=== PATIENT | female | born 1985 | race African-American/Black ===

== ENCOUNTER 2024-03-17 10:45 | Inpatient (IN) | payer BC, OTHER ==
[~2024-03-17] VITALS: Ht 149.9 cm; Wt 85.0 kg
[2024-03-17 12:07] LABS: Basophils # (auto) 0 10 ^3/uL (0-0.2); Basophils % (auto) 0.6 % (0.0-2.0); Eosinophils # (auto) 0.1 10 ^3/uL (0-0.8); Eosinophils % (auto) 2.4 % (0.0-7.0); Hematocrit 41.8 % (36.0-46.0); Hemoglobin 13.4 g/dL (12.2-16.2); Lymphocytes # (auto) 1.3 10 ^3/uL (0.4-5.4); Lymphocytes % (auto) 42.3 % (10.0-50.0); Mean Corpuscular Hemoglobin 26.2 pg (28.0-32.0); Mean Corpuscular Hgb Conc. 31.9 g/dL (32.0-36.0); Mean Corpuscular Volume 82.1 fL (80.0-100.0); Monocytes # (auto) 0.1 10 ^3/uL (0-1.3); Monocytes % (auto) 4.5 % (0.0-12.0); Neutrophils # (auto) 1.5 10 ^3/uL (1.6-8.6); Neutrophils % (auto) 50.2 % (37.0-80.0); Nucleated Red Blood Cells % 0.3 %; Platelet Count (auto) 136 10^3/uL (140-450); Red Blood Cells 5.09 10^6/uL (4.0-5.20)
[2024-03-17 12:09] LABS: Chloride 109 mmol/L (98-107); Potassium 4.6 mmol/L (3.5-5.1); Red Cell Distribution Width 29.5 % (11.8-14.3); Sodium 138 mmol/L (136-145)
[2024-03-17 12:10] LABS: Anion Gap 6 (5-15); Calcium 9.9 mg/dL (8.7-10.4); Carbon Dioxide 23 mmol/L (20-30)
[2024-03-17 12:15] LABS: BUN/Creatinine Ratio 8.5 (10.0-20.0); Blood Urea Nitrogen 7 mg/dL (9-23); Glucose 100 mg/dL (74-106)
[2024-03-17 13:26] LABS: Urine Bacteria FEW /hpf (None Seen); Urine Blood Negative /uL (Negative); Urine Clarity Clear (Clear); Urine Color Light-Yellow (Yellow); Urine Hyaline Cast FEW /lpf (0 - 2); Urine Mucus FEW (None Seen); Urine Protein, UAD Negative (Negative); Urine Specific Gravity 1.011 (1.001-1.035); Urine Urobilinogen Normal (Negative); Urine WBC 8 /hpf (0 - 5)
[2024-03-17 13:34] LABS: Platelet Estimate Decreased
[2024-03-17 13:35] LABS: Anisocytosis Marked; Ovalocytes MODERATE
[2024-03-17] MEDS ORDERED: ACETAMINOPHEN 325 MG TAB PO PRN (15:15)
[2024-03-17] MEDS ORDERED: DOCUSATE SOD 100 MG CAP PO PRN (15:15)
[2024-03-17] MEDS ORDERED: ONDANSETRON HCL 4 MG/2 ML VIAL IV PRN (15:15)
[2024-03-17] MEDS ORDERED: NITROGLYCERIN 0.4 MG SL TAB SL PRN (16:00)
[2024-03-17] MEDS ORDERED: MORPHINE SULFATE INJ 2 MG/ml SYRG IV PRN (16:00)
[2024-03-17] MEDS: cefTRIAXone 1GM/50ML D5W 50 ML IV ONE (19:50)
[2024-03-17] MEDS: SODIUM CHLOR 0.9% PF (SALINE LOCK) 10ML VIAL/SYR IV SCH (22:00)
[2024-03-17 22:37] VITALS: BP 116/52; PULSE 87; RESP 18; TEMP 97.7; O2SAT 95
[2024-03-17] MEDS ORDERED: METO25TA93 PO (23:04)
[2024-03-17] MEDS ORDERED: AML5T PO (23:04)
[2024-03-17] MEDS ORDERED: FLUT500M2 INH (23:04)
[2024-03-17] MEDS ORDERED: ALBUAER3 IN (23:04)
[2024-03-17] MEDS ORDERED: OMEP-448 PO (23:04)
[2024-03-17] MEDS ORDERED: FER325T PO (23:04)
[2024-03-17] MEDS: MECLIZINE HCL 25 MG TAB PO PRN (23:52)
[2024-03-18] VITALS (10 sets, daily range): BP systolic 111–124; BP diastolic 73–90; PULSE 49–94; RESP 16–20; TEMP 97.6–98.3; O2SAT 95–99
[2024-03-18] MEDS: LORazepam 0.5 MG TAB PO ONE (07:55)
[2024-03-18] MEDS: cefTRIAXone 1GM/50ML D5W 50 ML IV SCH (08:46)
[2024-03-18 10:06] LABS: Basophils # (auto) 0 10 ^3/uL (0-0.2); Eosinophils # (auto) 0.2 10 ^3/uL (0-0.8); Hemoglobin 12.6 g/dL (12.2-16.2); Lymphocytes # (auto) 1.5 10 ^3/uL (0.4-5.4); Monocytes # (auto) 0.3 10 ^3/uL (0-1.3); Monocytes % (auto) 5.7 % (0.0-12.0); White Blood Cell 4.9 10^3/uL (4.4-10.8)
[2024-03-18 10:10] LABS: Basophils % (auto) 0.7 % (0.0-2.0); Hematocrit 37.7 % (36.0-46.0); Lymphocytes % (auto) 29.5 % (10.0-50.0); Mean Corpuscular Hemoglobin 26.5 pg (28.0-32.0); Mean Corpuscular Hgb Conc. 33.4 g/dL (32.0-36.0); Mean Corpuscular Volume 79.2 fL (80.0-100.0); Neutrophils % (auto) 60.1 % (37.0-80.0); Nucleated Red Blood Cells % 0.2 %; Platelet Count (auto) 382 10^3/uL (140-450); Red Blood Cells 4.76 10^6/uL (4.0-5.20); Red Cell Distribution Width 29.2 % (11.8-14.3)
[2024-03-18 10:13] LABS: Alanine Aminotransferase 16 U/L (7-40); Albumin 4.1 g/dL (3.2-4.8); Alkaline Phosphatase 80 U/L (46-116); Anion Gap 6 (5-15); Aspartate Aminotransferase < 8 U/L (13-40); BUN/Creatinine Ratio 7.4 (10.0-20.0); Bilirubin, Total 0.5 mg/dL (0.2-1.0); Blood Urea Nitrogen 7 mg/dL (9-23); Calcium 9.7 mg/dL (8.7-10.4); Carbon Dioxide 25 mmol/L (20-30); Chloride 106 mmol/L (98-107); Glucose 146 mg/dL (74-106); Potassium 3.6 mmol/L (3.5-5.1); Sodium 137 mmol/L (136-145); Total Protein 6.9 g/dL (5.7-8.2)
[2024-03-18 10:45] LABS: Platelet Estimate Adequate
[2024-03-18] MEDS: hydrOXYzine HCL 10 MG TAB PO PRN (18:48)
[2024-03-18] MEDS: HYDROcodone-ACET 5/325MG TAB PO PRN (18:49)
[2024-03-18] MEDS ORDERED: ALBUTEROL SULF 2.5 MG/0.5ML(0.5%) NEB SOLN NEB PRN (20:45)
[2024-03-18] MEDS ORDERED: clonazePAM 0.5 MG TAB PO PRN (20:45)
[2024-03-18] MEDS: FAMOTIDINE 20 MG TAB PO SCH (21:36)
[2024-03-18] MEDS: CITALOPRAM HYDROBR 20 MG TAB PO ONE (21:36)
[2024-03-19 05:00] VITALS: BP_SYST 133; BP_SYST 134; BP_DIAS 86; BP_DIAS 90; PULSE 54; PULSE 63; RESP 18; O2SAT 99
[2024-03-19] MEDS: LORazepam 0.5 MG TAB PO ONE (05:51)
[2024-03-19] MEDS ORDERED: PANTOPRAZOLE 40 MG TAB PO SCH (06:00)
[2024-03-19 07:01] LABS: Basophils # (auto) 0 10 ^3/uL (0-0.2); Eosinophils # (auto) 0.2 10 ^3/uL (0-0.8); Hemoglobin 13.4 g/dL (12.2-16.2); Lymphocytes # (auto) 1.6 10 ^3/uL (0.4-5.4); Monocytes # (auto) 0.2 10 ^3/uL (0-1.3)
[2024-03-19 07:04] LABS: Basophils % (auto) 0.8 % (0.0-2.0); Eosinophils % (auto) 3.8 % (0.0-7.0); Hematocrit 40.1 % (36.0-46.0); Lymphocytes % (auto) 39.9 % (10.0-50.0); Mean Corpuscular Hemoglobin 26.5 pg (28.0-32.0); Mean Corpuscular Hgb Conc. 33.4 g/dL (32.0-36.0); Mean Corpuscular Volume 79.4 fL (80.0-100.0); Neutrophils % (auto) 49.5 % (37.0-80.0); Nucleated Red Blood Cells % 0.2 %; Platelet Count (auto) 422 10^3/uL (140-450); Red Blood Cells 5.04 10^6/uL (4.0-5.20)
[2024-03-19 07:05] LABS: Chloride 107 mmol/L (98-107); Potassium 3.8 mmol/L (3.5-5.1); Sodium 137 mmol/L (136-145)
[2024-03-19 07:06] LABS: Anion Gap 6 (5-15); Calcium 9.7 mg/dL (8.7-10.4); Carbon Dioxide 24 mmol/L (20-30)
[2024-03-19 07:09] LABS: Red Cell Distribution Width 29.4 % (11.8-14.3)
[2024-03-19 07:11] LABS: BUN/Creatinine Ratio 9.6 (10.0-20.0); Blood Urea Nitrogen 9 mg/dL (9-23); Glucose 101 mg/dL (74-106); Triglycerides 203 mg/dL (< 150)
[2024-03-19 07:12] LABS: LDL Cholesterol 113 mg/dL (< 100)
[2024-03-19 07:13] LABS: Cholesterol 196 mg/dL (< 200); HDL Cholesterol 49 mg/dL (40-59)
[2024-03-19 08:00] VITALS: PULSE 60; RESP 17; O2SAT 99
[2024-03-19 09:00] VITALS: BP 115/77; PULSE 58; RESP 18; TEMP 97.8; O2SAT 98
[2024-03-19] MEDS: cefTRIAXone 1GM/50ML D5W 50 ML IV SCH (10:00)
[2024-03-19] MEDS ORDERED: SERTRALINE HCL 50 MG TAB PO SCH (10:00)
[2024-03-19] MEDS: CITALOPRAM HYDROBR 20 MG TAB PO SCH (10:01)
[2024-03-19] MEDS: FERROUS SULFATE 325mg EC TAB PO SCH (10:01)
[2024-03-19] MEDS: CEPHALEXIN 250 MG CAP PO SCH (10:02)
[2024-03-19 10:16] VITALS: O2SAT 98
[2024-03-19 13:00] VITALS: BP 126/89; PULSE 69; RESP 16; TEMP 97.7; O2SAT 96
[2024-03-19 13:37] VITALS: BP 115/77; PULSE 60; RESP 17; TEMP 36.6; O2SAT 99
[2024-03-20 16:06] LABS: Anti-Nuclear Antibody Direct Negative (Negative)
== END 2024-03-19 15:07 | disposition home or self-care (01) | DRG 55 ==
LOC: ER 10:45 → TELE 15:54 → TELE-WESTW 21:50 → WEST WING 03-18 22:56
PROVIDERS: ADMIT Internal Medicine; ATTEND Internal Medicine
DX: D33.2 Benign neoplasm of brain, unspecified (principal); N39.0 Urinary tract infection, site not specified; I10 Essential (primary) hypertension; H93.13 Tinnitus, bilateral; D50.9 Iron deficiency anemia, unspecified; F41.9 Anxiety disorder, unspecified; J45.909 Unspecified asthma, uncomplicated; K21.9 Gastro-esophageal reflux disease without esophagitis; F43.20 Adjustment disorder, unspecified; D69.6 Thrombocytopenia, unspecified; E66.9 Obesity, unspecified; Z79.899 Other long term (current) drug therapy; Z82.49 Family history of ischemic heart disease and other diseases of the circulatory system; Z68.37 Body mass index [BMI] 37.0-37.9, adult
CPT/HCPCS: 36415; 70450; 71045; 80048; 80053; 80061; 81001; 81025; 83036; 83540; 84146; 84443; 84484; 85025; 86038; 87086; 93306; 96365; G0378

== ENCOUNTER 2024-06-11 01:26 | Emergency (ER) | payer BC ==
[~2024-06-11] VITALS: Ht 149.9 cm; Wt 85.1 kg
[~2024-06-11 01:26] MED LIST: ALBUAER3 IN; AML5T PO; FER325T PO; FLUT500M2 INH; METO25TA93 PO; OMEP-448 PO
[2024-06-11 03:17] LABS: Urine Bacteria None Seen /hpf (None Seen)
--- NOTE | 2024-06-11 03:35 | ED.PDOC ---
HPI Comments A 38 year old female presents to the ED with a chief complaint of palpitations onset 1 week. Patient went to bed yesterday around 22:00 and shortly after began experiencing palpations with shortness of breath. Upon ED arrival, patient states palpations and shortness of breath has resolved. She has a Holter monitor in place, has seen Alcoholic Counselor and Psychiatrist recently. She denies any chest pain, dizziness, blurry vision, nausea, vomiting, diarrhea. No other symptoms or modifying factors present at this time. Chief Complaint: Palpitations Time Seen by MD: 03:12 Primary Care Provider: UNKNOWN Reviewed Notes: Medications, Allergies Allergies: Coded Allergies: NO KNOWN ALLERGIES (Unverified , 03/17/24) Home Meds Reported Medications Metoprolol Succinate (Metoprolol Succinate Er) 25 Mg Tab, 1 TAB PO DAILY, #30 TAB 5 Refills 03/17/24 Albuterol Sulfate (VENTOLIN MDI) 90 Mcg Ih, 90 MCG IN, INH 03/17/24 Ferrous Sulfate (FERROUS SULFATE) 325 Mg Tb, 1 TAB PO BID, #60 TAB 3 Refills 03/17/24 Amlodipine Besylate (NORVASC TABLET) 5 Mg Tb, 1 TAB PO DAILY, #30 TAB 5 Refills 03/17/24 Omeprazole (Omeprazole Dr) 40 Mg Cap, 40 MG PO BID, CAP 03/17/24 Fluticasone-Salmeterol (Advair Diskus 500/50) 1 Puff Ih, 1 PUFF INH BID, #1 INHALER 5 Refills 03/17/24 Information Source: Patient Mode of Arrival: Ambulatory Severity: Moderate Timing: Weeks Duration: Since onset Prehospital treatment: None Cardiac Risk Factors: None PE Risk Factors: None Associated Signs and Symptoms: SOB, Palpitations Past Medical History PAST MEDICAL HISTORY: Asthma Surgical History: Denies all surgeries [employer] History: Denies all [employer] Hx Family History Family History: Reviewed,noncontributory to illness Social History Smoker: Non-Smoker Alcohol: Denies ETOH Use Drugs: Denies Drug Use Lives In: Home Constitutional: denies: chills, diaphoresis, fatigue, fever, malaise, sweats, weakness, others EENTM: denies: blurred vision, double vision, ear bleeding, ear discharge, ear drainage, ear pain, ear ringing, eye pain, eye redness, hearing loss, mouth pain, mouth swelling, nasal discharge, nose bleeding, nose congestion, nose pain, photophobia, tearing, throat pain, throat swelling, voice changes, others Respiratory: reports: shortness of breath; denies: cough, hemoptysis, orthopnea, SOB at rest, SOB with excertion, stridor, wheezing, others Cardiovascular: reports: palpitations; denies: chest pain, dizzy spells, diaphoresis, Dyspnea on exertion, edema, irregular heart beat, left arm pain, lightheadedness, PND, syncope, others Gastrointestinal: denies: abdomen distended, abdominal pain, blood streaked bowels, constipated, diarrhea, dysphagia, difficulty swallowing, hematemesis, melena, nausea, poor appetite, poor fluid intake, rectal bleeding, rectal pain, vomiting, others Genitourinary: denies: abnormal vagina bleeding, burning, dyspareunia, dysuria, flank pain, frequency, hematuria, incontinence, pain, , vagina discharge, urgency, others Neurological: reports: headache; denies: dizziness, fainting, left sided numbness, left sided weakness, numbness, paresthesia, pre-existing deficit, right sided numbness, right sided weakness, seizure, speech problems, tingling, tremors, weakness, others Musculoskeletal: denies: back pain, gout, joint pain, joint swelling, muscle pain, muscle stiffness, neck pain, others Integumetry: denies: bruises, change in color, change in hair/nails, dryness, laceration, lesions, lumps, rash, wounds, others Allergic/Immunocompromised: denies: Difficulty Healing, Frequent Infections, Hives, Itching, others Hematologic/Lymphatic: denies: anemia, blood clots, easy bleeding, easy b ruising, swollen glands, others Endocrine: denies: excessive hunger, excessive sweating, excessive thirst, excessive urination, flushing, intolerance to cold, intolerance to heat, unexplained weight gain, unexplained weight loss, others Psychiatric: reports: anxiety; denies: bipolar disorder, depression, hopeless, panic disorder, schizophrenia, sleepless, suicidal, others All Other Systems: Reviewed and Negative Physical Exam General Appearance: Mild Distress, Normal HEENT: Normal ENT Inspection, Pharynx Normal, TMs Normal Neck: Full Range of Motion, Non-Tender, Normal, Normal Inspection Respiratory: Chest Non-Tender, Lungs Clear, No Accessory Muscle Use, No Respiratory Distress, Normal Breath Sounds Cardiovascular: No Edema, No JVD, No Murmur, No Gallop, Normal Peripheral Pulses, Regular Rate/Rhythm Breast Exam: Deferred Gastrointestinal: No Organomegaly, Non Tender, No Pulsatile Mass, Normal Bowel Sounds, Soft Genitalia: Deferred Pelvic: Deferred Rectal: Deferred Extremities: No calf tenderness, Normal capillary refill, Normal inspection, Normal range of motion, Non-tender, No pedal edema Musculoskeletal : Apperance: Normal Neurologic: Alert, honeycomb blanket maker II-XII nml as Tested, No Motor Deficits, Normal Affect, Normal Mood, No Sensory Deficits Cerebellar Function: Normal Reflexes: Normal Skin: Dry, Normal Color, Warm Lymphatic: No Adenopathy EKG EKG #1: [place]: Normal Cardiac Rhythm: NSR (78 bpm) Hypertrophy: RVH EKG #2: [place]: Normal Cardiac Rhythm: NSR (72 bpm) Hypertrophy: RVH Was a procedure done? Was a procedure done?: No CP Differential Dx Differential Diagnosis: A-fib, A-Flutter, Anxiety / Panic Attack, Hyperthyroidism, MA, Other (Panic attacks) X-Ray, Labs, Meds, VS Vital Signs Date Time Temp Pulse Resp B/P (MAP) Pulse Ox O2 Delivery O2 Flow Rate FiO2 06/11/24 02:39 72 06/11/24 01:36 78 06/11/24 01:36 97.5 88 16 147/96 (113) 98 Lab Test 06/11/24 02:34 06/11/24 01:43 06/11/24 01:37 Range/Units Troponin I High Sensitivity < 3 L < 3 L </=34 ng/L Urine Color Pending Urine Clarity Pending Urine pH Pending Urine Specific Datto Pending Urine Protein Pending Urine Ketones Pending Urine Blood Pending Urine Nitrite Pending Urine Bilirubin Pending Urine Urobilinogen Pending Urine Leukocyte Esterase Pending Urine RBC Pending Urine WBC Pending Urine Squamous Epithelial Cells Pending Urine Bacteria Pending Urine Glucose Pending First troponin is three. Second troponin is three. EKG reveals RVH but no signs of ischemia. The patient is seeing a endocrinologists a deployment specialist in [facility], she is receiving Holter monitor which she is going to mail in today from [facility]. She is given a complete workup. She is also seeing a psychiatrist. Who placed her on Lexapro but does not think his anxiety. She is encouraged to continue her current workup and follow up with all the specialists. She was given Ativan prior to discharge. Time of 1ST Reevaluation: 03:42 Reevaluation 1ST: Unchanged Patient Education/Counseling: Diagnosis, Treatment, Prognosis Family Education/Counseling: No Family Present Departure 1 Departure Time of Disposition: 03:39 Impression: Primary Impression: Anxiety Additional Impression: Palpitation Disposition: 01 HOME / SELF CARE / HOMELESS Condition: Fair Additional Instructions: Reassessed patient, vital signs stable. Denies any new symptoms. Patient is able to tolerate PO and ambulate/be mobile at their baseline without concern. Risks and benefits of all medications given or prescribed, if any, discussed. All lab work, imaging and diagnostic studies were reviewed by me. The patient was counseled extensively on my clinical impression, diagnosis, expected course of the disease, and plan, including their follow-up care. Will discharge patient. Patient instructed to follow up with Primary Care Physician within 24-48 hours. Strict return precautions given for further exacerbation of symptoms or for new symptoms. The patient was given the opportunity to ask questions and all questions were answered by myself and the nursing/tech staff. Patient is in agreement with the care plan. The patient verbally expressed understanding of the discharge instructions, including the reasons to return to the Emergency Department. Follow up with all your specialist including Cardiology Psychiatry and [facility] and medical lab scientist. Discharged With: Self Critical Care Note Critical Care Time?: No Stability Stability form required: No Heart Score Heart Score: Heart Score Response (Comments) Value History N/A 0 EKG Normal 0 Age <45 0 Risk Factors No known risk factors 0 Troponin Normal limit 0 Total 0 I personally scribed for MARE ALVARADO MD ([email or web address]) on 06/11/24 at 03:35. Electronically submitted by Devorah Rodriguez ([email or web address]). MARE ALVARADO MD Jun 11, 2024 03:35
[2024-06-11 04:03] VITALS: BP 147/96; PULSE 72; RESP 16; O2SAT 97
[2024-06-11 04:07] LABS: Urine Blood Negative /uL (Negative); Urine Clarity Clear (Clear); Urine Color Yellow (Yellow); Urine Mucus FEW (None Seen); Urine Protein, UAD TRACE (Negative); Urine Specific Gravity 1.031 (1.001-1.035); Urine Squamous Epithelial Cell FEW /hpf (<5); Urine Urobilinogen Normal (Negative); Urine WBC 27 /hpf (0 - 5)
--- NOTE | 2024-06-12 06:26 | ECG ---
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
--- NOTE | 2024-06-12 10:16 | ECG ---
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
== END 2024-06-11 04:08 | disposition home or self-care (01) ==
LOC: ER 01:26
DX: F41.9 Anxiety disorder, unspecified (principal); R00.2 Palpitations; J45.909 Unspecified asthma, uncomplicated; Z79.51 Long term (current) use of inhaled steroids; Z79.899 Other long term (current) drug therapy
CPT/HCPCS: 36415; 81001; 84484; 93005

== ENCOUNTER 2024-08-22 18:33 | Emergency (ER) | payer BC ==
[~2024-08-22] VITALS: Ht 149.9 cm; Wt 77.9 kg
--- NOTE | 2024-08-22 19:37 | ED.PDOC ---
HPI (NEURO) HPI Comments 39y F who presents to the ED for chief complaint of headache. Pt states she has been having headache, palpitations, dizziness, chills, malaise and body aches after she has been eating food. Pt states these symptoms have been going on for the past 1 week and pt states due to her symptoms, she has not eaten much over the past 4 days and states she has only eggs during this time period. Pt states she has been getting progressively worse and came to the ED for further evaluation. Pt otherwise denies any other symptoms at this time. Chief Complaint: Headache Time Seen by MD: 19:35 Primary Care Provider: SUSHIL Alberto Notes: Nurses Notes Information Source: Patient Mode of Arrival: Ambulatory Brought in by: self Past Medical History PAST MEDICAL HISTORY: Asthma Surgical History: Denies all surgeries [employer] AD[employer]ATE History: Denies all [employer] Hx Family History Family History: Reviewed,noncontributory to illness Social History Smoker: Non-Smoker Alcohol: Denies ETOH Use Drugs: Denies Drug Use Lives In: Home Constitutional: reports: weakness; denies: chills, diaphoresis, fatigue, fever, malaise, sweats, others EENTM: denies: blurred vision, double vision, ear bleeding, ear discharge, ear drainage, ear pain, ear ringing, eye pain, eye redness, hearing loss, mouth pain, mouth swelling, nasal discharge, nose bleeding, nose congestion, nose pain, photophobia, tearing, throat pain, throat swelling, voice changes, others Respiratory: denies: cough, hemoptysis, orthopnea, SOB at rest, shortness of breath, SOB with excertion, stridor, wheezing, others Cardiovascular: denies: chest pain, dizzy spells, diaphoresis, Dyspnea on exertion, edema, irregular heart beat, left arm pain, lightheadedness, palpitations, PND, syncope, others Gastrointestinal: reports: abdominal pain, vomiting; denies: abdomen distended, blood streaked bowels, constipated, diarrhea, dysphagia, difficulty swallowing, hematemesis, melena, nausea, poor appetite, poor fluid intake, rectal bleeding, rectal pain, others Genitourinary: denies: abnormal vagina bleeding, burning, dyspareunia, dysuria, flank pain, frequency, hematuria, incontinence, pain, , vagina discharge, urgency, others Neurological: reports: headache; denies: dizziness, fainting, left sided numbness, left sided weakness, numbness, paresthesia, pre-existing deficit, right sided numbness, right sided weakness, seizure, speech problems, tingling, tremors, weakness, others Musculoskeletal: denies: back pain, gout, joint pain, joint swelling, muscle pain, muscle stiffness, neck pain, others Integumetry: denies: bruises, change in color, change in hair/nails, dryness, laceration, lesions, lumps, rash, wounds, others Allergic/Immunocompromised: denies: Difficulty Healing, Frequent Infections, Hives, Itching, others Hematologic/Lymphatic: denies: anemia, blood clots, easy bleeding, easy bruising, swollen glands, others Endocrine: denies: excessive hunger, excessive sweating, excessive thirst, excessive urination, flushing, intolerance to cold, intolerance to heat, unexplained weight gain, unexplained weight loss, others Psychiatric: denies: anxiety, bipolar disorder, depression, hopeless, panic disorder, schizophrenia, sleepless, suicidal, others All Other Systems: Reviewed and Negative Physical Exam General Appearance: Mild Distress, Normal HEENT: Normal ENT Inspection, Pharynx Normal, TMs Normal Neck: Full Range of Motion, Non-Tender, Normal, Normal Inspection Respiratory: Chest Non-Tender, Lungs Clear, No Accessory Muscle Use, No Respiratory Distress, Normal Breath Sounds Cardiovascular: No Edema, No JVD, No Murmur, No Gallop, Normal Peripheral Pulses, Regular Rate/Rhythm Breast Exam: Deferred Gastrointestinal: No Organomegaly, Non Tender, No Pulsatile Mass, Normal Bowel Sounds, Soft Genitalia: Deferred Pelvic: Deferred Rectal: Deferred Extremities: No calf tenderness, Normal capillary refill, Normal inspection, Normal range of motion, Non-tender, No pedal edema Musculoskeletal : Apperance: Normal Neurologic: Alert, gas prover II-XII nml as Tested, No Motor Deficits, Normal Affect, Normal Mood, No Sensory Deficits Cerebellar Function: Normal Reflexes: Normal Skin: Dry, Normal Color, Warm Lymphatic: No Adenopathy Was a procedure done? Was a procedure done?: No Differential Diagnosis (SZ) General Weakness: Anemia, Dehydration, Electrolyte imbalance, Hypoglycemia, Hypotension, Hypovolemia, Vertigo: central, Vertigo: peripheral X-Ray, Labs, Meds, VS Vital Signs Date Time Temp Pulse Resp B/P (MAP) Pulse Ox O2 Delivery O2 Flow Rate FiO2 08/22/24 18:55 81 08/22/24 18:45 98.7 94 16 141/99 (113) 97 Lab Test 08/22/24 19:36 08/22/24 18:50 Range/Units White Blood Count 3.6 L 4.4-10.8 10^3/uL Red Blood Count 4.95 4.0-5.20 10^6/uL Hemoglobin 12.3 12.2-16.2 g/dL Hematocrit 38.7 36.0-46.0 % Mean Corpuscular Volume 78.1 L 80.0-100.0 fL Mean Corpuscular Hemoglobin 24.9 L 28.0-32.0 pg Mean Corpuscular Hemoglobin Concent 31.8 L 32.0-36.0 g/dL Red Cell Distribution Width 16.5 H 11.8-14.3 % Platelet Count 412 140-450 10^3/uL Mean Platelet Volume 8.1 6.9-10.8 fL Neutrophils (%) (Auto) 48.0 37.0-80.0 % Lymphocytes (%) (Auto) 39.1 10.0-50.0 % Monocytes (%) (Auto) 6.8 0.0-12.0 % Eosinophils (%) (Auto) 4.9 0.0-7.0 % Basophils (%) (Auto) 1.2 0.0-2.0 % Neutrophils # (Auto) 1.7 1.6-8.6 10 ^3/uL Lymphocytes # (Auto) 1.4 0.4-5.4 10 ^3/uL Monocytes # (Auto) 0.2 0-1.3 10 ^3/uL Eosinophils # (Auto) 0.2 0-0.8 10 ^3/uL Basophils # (Auto) 0 0-0.2 10 ^3/uL Nucleated Red Blood Cells 0.4 % Sodium Level 139 136-145 mmol/L Potassium Level 3.3 L 3.5-5.1 mmol/L Chloride Level 107 98-107 mmol/L Carbon Dioxide Level 21 20-31 mmol/L Anion Gap 11 5-15 Blood Urea Nitrogen 5 L 9-23 mg/dL Creatinine 0.87 0.550-1.02 mg/dL Glomerular Filtration Rate Calc 86 >90 mL/min BUN/Creatinine Ratio 5.7 L 10.0-20.0 Serum Glucose 79 74-106 mg/dL Calcium Level 10.2 8.7-10.4 mg/dL Magnesium Level 2.0 1.6-2.6 mg/dL Total Bilirubin 1.0 0.2-1.0 mg/dL Aspartate Amino Transferase (AST) 9 L 13-40 U/L Alanine Aminotransferase (ALT) 12 7-40 U/L Alkaline Phosphatase 73 46-116 U/L Total Protein 7.9 5.7-8.2 g/dL Albumin 5.1 H 3.2-4.8 g/dL POC Glucose 80 70-106 mg/dl Time of 1ST Reevaluation: 20:05 Reevaluation 1ST: Unchanged Time of 2ND Reevaluation: 20:46 Reevaluation 2ND: Improved Patient Education/Counseling: Diagnosis, Treatment Family Education/Counseling: No Family Present Departure 1 Departure Time of Disposition: 20:46 Impression: Primary Impression: Palpitation Additional Impressions: Dizziness Hypokalemia Disposition: 01 HOME / SELF CARE / HOMELESS Condition: Stable Discharged With: Self Critical Care Note Critical Care Time?: No Stability Stability form required: No Heart Score Heart Score: Heart Score Response (Comments) Value History N/A 0 EKG N/A 0 Age N/A 0 Risk Factors N/A 0 Troponin N/A 0 Total 0 I personally scribed for VEL DUMONT MD ([email or web address]) on 08/22/24 at 19:37. Electronically submitted by Alie Alvarado ([email or web address]). VEL DUMONT MD Aug 22, 2024 19:37
[2024-08-22 19:57] LABS: Basophils # (auto) 0 10 ^3/uL (0-0.2); Eosinophils # (auto) 0.2 10 ^3/uL (0-0.8); Hemoglobin 12.3 g/dL (12.2-16.2); Monocytes # (auto) 0.2 10 ^3/uL (0-1.3); Neutrophils # (auto) 1.7 10 ^3/uL (1.6-8.6); White Blood Cell 3.6 10^3/uL (4.4-10.8)
[2024-08-22 19:58] LABS: Basophils % (auto) 1.2 % (0.0-2.0); Eosinophils % (auto) 4.9 % (0.0-7.0); Hematocrit 38.7 % (36.0-46.0); Lymphocytes # (auto) 1.4 10 ^3/uL (0.4-5.4); Lymphocytes % (auto) 39.1 % (10.0-50.0); Mean Corpuscular Hemoglobin 24.9 pg (28.0-32.0); Mean Corpuscular Hgb Conc. 31.8 g/dL (32.0-36.0); Mean Corpuscular Volume 78.1 fL (80.0-100.0); Monocytes % (auto) 6.8 % (0.0-12.0); Nucleated Red Blood Cells % 0.4 %; Platelet Count (auto) 412 10^3/uL (140-450); Red Blood Cells 4.95 10^6/uL (4.0-5.20); Red Cell Distribution Width 16.5 % (11.8-14.3)
[2024-08-22 20:21] LABS: Alanine Aminotransferase 12 U/L (7-40); Alkaline Phosphatase 73 U/L (46-116); Anion Gap 11 (5-15); BUN/Creatinine Ratio 5.7 (10.0-20.0); Calcium 10.2 mg/dL (8.7-10.4); Carbon Dioxide 21 mmol/L (20-31); Chloride 107 mmol/L (98-107); Glucose 79 mg/dL (74-106); Sodium 139 mmol/L (136-145)
[2024-08-22 20:22] LABS: Albumin 5.1 g/dL (3.2-4.8); Aspartate Aminotransferase 9 U/L (13-40); Blood Urea Nitrogen 5 mg/dL (9-23); Potassium 3.3 mmol/L (3.5-5.1); Total Protein 7.9 g/dL (5.7-8.2)
[2024-08-22 20:46] VITALS: BP 128/95; PULSE 89; RESP 18; TEMP 97.9; O2SAT 98
[2024-08-22] MEDS: POTASSIUM CHL 20 Meq TABLET PO ONE (21:02)
--- NOTE | 2024-08-24 09:41 | ECG ---
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
== END 2024-08-22 21:32 | disposition home or self-care (01) ==
LOC: ER 18:33
DX: R00.2 Palpitations (principal); R42 Dizziness and giddiness; E87.6 Hypokalemia; J45.909 Unspecified asthma, uncomplicated
CPT/HCPCS: 36415; 80053; 82962; 83735; 85025; 93005

== ENCOUNTER 2025-05-12 18:13 | Emergency (ER) | payer BC ==
[~2025-05-12] VITALS: Ht 149.9 cm; Wt 67.9 kg
--- NOTE | 2025-05-12 18:32 | ECG ---
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
--- NOTE | 2025-05-12 18:58 | ED.PDOC ---
HPI Comments 39 year old female with PMHx asthma presents to the ED with a chief compliant of palpitations onset 5 days. Patient states she has been experiencing palpitations for the past 5 days. For the past day, she has been experiencing RLQ pain as well as shortness of breath. Patient has been seen my Music Executive, pending results. She has been taking Tylenol for RLQ pain, with slight relief of symptoms. Denies fever, chills, chest pain, dizziness, headache, nausea, vomiting, diarrhea, dysuria, hematuria, hematemesis. No other symptoms or modifying factors present at this time. Chief Complaint: Palpitations Time Seen by MD: 18:14 Primary Care Provider: SUSHIL Alberto Notes: Medications, Allergies Allergies: Coded Allergies: Estradiol (Verified Allergy, Severe, 05/12/25) Home Meds Active Scripts Sulfamethoxazole W/Trimethopri (Bactrim Ds Tablet) 1 Tab Tb, 1 TAB PO BID for 7 Days, #14 TAB Prov:VEL DUMONT MD 05/12/25 Reported Medications Metoprolol Succinate (Metoprolol Succinate Er) 25 Mg Tab, 1 TAB PO DAILY, #30 TAB 5 Refills 03/17/24 Albuterol Sulfate (VENTOLIN MDI) 90 Mcg Ih, 90 MCG IN, INH 03/17/24 Ferrous Sulfate (FERROUS SULFATE) 325 Mg Tb, 1 TAB PO BID, #60 TAB 3 Refills 03/17/24 Amlodipine Besylate (NORVASC TABLET) 5 Mg Tb, 1 TAB PO DAILY, #30 TAB 5 Refills 03/17/24 Omeprazole (Omeprazole Dr) 40 Mg Cap, 40 MG PO BID, CAP 03/17/24 Fluticasone-Salmeterol (Advair Diskus 500/50) 1 Puff Ih, 1 PUFF INH BID, #1 INHALER 5 Refills 03/17/24 Information Source: Patient Mode of Arrival: Ambulatory Severity: Moderate Timing: Days Duration: Since onset Prehospital treatment: Pain Meds (Tylenol) Associated Signs and Symptoms: SOB, Palpitations Past Medical History PAST MEDICAL HISTORY: Asthma Surgical History: Denies all surgeries AUTOMATION DEVELOPER History: Denies all 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 DEVELOPER Hx Family History Family History: Reviewed,noncontributory to illness Social History Smoker: Non-Smoker Alcohol: Denies ETOH Use Drugs: Denies Drug Use Lives In: Home Constitutional: denies: chills, diaphoresis, fatigue, fever, malaise, sweats, weakness, others EENTM: denies: blurred vision, double vision, ear bleeding, ear discharge, ear drainage, ear pain, ear ringing, eye pain, eye redness, hearing loss, mouth pain, mouth swelling, nasal discharge, nose bleeding, nose congestion, nose pain, photophobia, tearing, throat pain, throat swelling, voice changes, others Respiratory: reports: shortness of breath; denies: cough, hemoptysis, orthopnea, SOB at rest, SOB with excertion, stridor, wheezing, others Cardiovascular: reports: palpitations; denies: chest pain, dizzy spells, diaphoresis, Dyspnea on exertion, edema, irregular heart beat, left arm pain, lightheadedness, PND, syncope, others Gastrointestinal: reports: abdominal pain (RLQ); denies: abdomen distended, blood streaked bowels, constipated, diarrhea, dysphagia, difficulty swallowing, hematemesis, melena, nausea, poor appetite, poor fluid intake, rectal bleeding, rectal pain, vomiting, others Genitourinary: denies: abnormal vagina bleeding, burning, dyspareunia, dysuria, flank pain, frequency, hematuria, incontinence, pain, , vagina dis charge, urgency, others Neurological: denies: dizziness, fainting, headache, left sided numbness, left sided weakness, numbness, paresthesia, pre-existing deficit, right sided numbness, right sided weakness, seizure, speech problems, tingling, tremors, weakness, others Musculoskeletal: denies: back pain, gout, joint pain, joint swelling, muscle pain, muscle stiffness, neck pain, others Integumetry: denies: bruises, change in color, change in hair/nails, dryness, laceration, lesions, lumps, rash, wounds, others Allergic/Immunocompromised: denies: Difficulty Healing, Frequent Infections, Hives, Itching, others Hematologic/Lymphatic: denies: anemia, blood clots, easy bleeding, easy bruising, swollen glands, others Endocrine: denies: excessive hunger, excessive sweating, excessive thirst, excessive urination, flushing, intolerance to cold, intolerance to heat, unexplained weight gain, unexplained weight loss, others Psychiatric: denies: anxiety, bipolar disorder, depression, hopeless, panic disorder, schizophrenia, sleepless, suicidal, others All Other Systems: Reviewed and Negative Physical Exam General Appearance: Normal HEENT: Normal ENT Inspection, Pharynx Normal, TMs Normal Neck: Full Range of Motion, Non-Tender, Normal, Normal Inspection Respiratory: Chest Non-Tender, Lungs Clear, No Accessory Muscle Use, No Respiratory Distress, Normal Breath Sounds Cardiovascular: No Edema, No JVD, No Murmur, No Gallop, Normal Peripheral Pulses, Regular Rate/Rhythm Breast Exam: Deferred Gastrointestinal: No Organomegaly, Non Tender, No Pulsatile Mass, Normal Bowel Sounds, Soft Genitalia: Deferred Pelvic: Deferred Rectal: Deferred Extremities: No calf tenderness, Normal capillary refill, Normal inspection, Normal range of motion, Non-tender, No pedal edema Musculoskeletal : Apperance: Normal Neurologic: Alert, welder gun II-XII nml as Tested, No Motor Deficits, Normal Affect, Normal Mood, No Sensory Deficits Cerebellar Function: Normal Reflexes: Normal Skin: Dry, Normal Color, Warm Lymphatic: No Adenopathy EKG EKG : Pulse Rate (adult): 63 Cardiac Rhythm: NSR Was a procedure done? Was a procedure done?: No CP Differential Dx Differential Diagnosis: A-fib, A-Flutter, Electrolyte Disorder, VA, Pulmonary Embolus, PVC's, V-Fib, V-Tach, WPW, Other X-Ray, Labs, Meds, VS Vital Signs Date Time Temp Pulse Resp B/P (MAP) Pulse Ox O2 Delivery O2 Flow Rate FiO2 05/12/25 22:25 107/85 (92) 05/12/25 20:49 97.3 86 16 107/84 (92) 99 97.3 05/12/25 18:31 69 05/12/25 18:15 97.0 88 18 109/84 98 97.0 Lab Test 05/12/25 21:02 05/12/25 19:53 05/12/25 18:56 Range/Units Urine Color Light-orange Yellow Urine Clarity Turbid H Clear Urine pH 6.0 5.0-9.0 Urine Specific [place] 1.019 1.001-1.035 Urine Protein Trace H Negative Urine Ketones 1+ H Negative Urine Blood 3+ H Negative /uL Urine Nitrite Negative Negative Urine Bilirubin Negative Negative Urine Urobilinogen Normal Negative mg/dL Urine Leukocyte Esterase 3+ Negative /uL Urine RBC 83 0 - 4 /hpf Urine Microscopic WBC 119 H 0-5 /HPF Urine Squamous Epithelial Cells Few <5 /hpf Urine Bacteria None seen None Seen /hpf Urine Mucus Few None Seen Urine Glucose Normal Normal mg/dL Urine Test Negative Negative Troponin I High Sensitivity 3 L 3 L </=34 ng/L White Blood Count 4.0 L 4.4-10.8 10^3/uL Red Blood Count 6.11 H 4.0-5.20 10^6/uL Hemoglobin 17.0 H 12.2-16.2 g/dL Hematocrit 51.4 H 36.0-46.0 % Mean Corpuscular Volume 84.2 80.0-100.0 fL Mean Corpuscular Hemoglobin 27.8 L 28.0-32.0 pg Mean Corpuscular Hemoglobin Concent 33.0 32.0-36.0 g/dL Red Cell Distribution Width 15.5 H 11.8-14.3 % Platelet Count 433 140-450 10^3/uL Mean Platelet Volume 8.3 6.9-10.8 fL Neutrophils (%) (Auto) 39.8 37.0-80.0 % Lymphocytes (%) (Auto) 49.9 10.0-50.0 % Monocytes (%) (Auto) 6.7 0.0-12.0 % Eosinophils (%) (Auto) 2.5 0.0-7.0 % Basophils (%) (Auto) 1.1 0.0-2.0 % Neutrophils # (Auto) 1.6 1.6-8.6 10 ^3/uL Lymphocytes # (Auto) 2.0 0.4-5.4 10 ^3/uL Monocytes # (Auto) 0.3 0-1.3 10 ^3/uL Eosinophils # (Auto) 0.1 0-0.8 10 ^3/uL Basophils # (Auto) 0 0-0.2 10 ^3/uL Nucleated Red Blood Cells 0.2 % Sodium Level 139 136-145 mmol/L Potassium Level 3.6 3.5-5.1 mmol/L Chloride Level 101 98-107 mmol/L Carbon Dioxide Level 24 20-31 mmol/L Anion Gap 14 5-15 Blood Urea Nitrogen 8 L 9-23 mg/dL Creatinine 1.07 H 0.550-1.02 mg/dL Glomerular Filtration Rate Calc 67 >90 mL/min BUN/Creatinine Ratio 7.5 L 10.0-20.0 Serum Glucose 71 L 74-106 mg/dL Calcium Level 10.3 8.7-10.4 mg/dL Total Bilirubin 2.3 H 0.2-1.0 mg/dL Aspartate Amino Transferase (AST) 18 13-40 U/L Alanine Aminotransferase (ALT) 57 H 7-40 U/L Alkaline Phosphatase 97 46-116 U/L Total Protein 8.7 H 5.7-8.2 g/dL Albumin 5.4 H 3.2-4.8 g/dL Current Medications Medications (Trade) Dose Ordered Sig/Jerald Route Start Time Stop Time Status Last Admin Trimethoprim/ Sulfamethoxazole (Bactrim Ds Tablet) 1 tab ONCE ONCE PO 05/12/25 22:00 05/12/25 22:01 DC 05/12/25 22:23 Time of 1ST Reevaluation: 04:00 Reevaluation 1ST: Improved Patient Education/Counseling: Diagnosis, Treatment Family Education/Counseling: No Family Present SEPSIS Sepsis Screen Date sepsis recognized/suspect: May 12, 2025 Time Sepsis recognized/suspect: 1816 Recent Procedure: No On Antibiotic Therapy: No Respiratory Rate >20: No Heart Rate >90: No Temp<36 C (96.8 F) or >38.3 C: No SBP <90 or MAP <65 mmHG: No New Acute Mental Status Change: No Is the patient on CPAP, BIPAP,: No Physician Orders Ct Ab Pel Wo Con-No Oral Or Iv (05/12/25 18:53) Vital Signs Date Time Temp Pulse Resp B/P (MAP) Pulse Ox O2 Delivery O2 Flow Rate FiO2 05/12/25 22:25 107/85 (92) 05/12/25 20:49 97.3 86 16 107/84 (92) 99 97.3 05/12/25 18:31 69 05/12/25 18:15 97.0 88 18 109/84 98 97.0 Laboratory Tests Test 05/12/25 18:56 White Blood Count 4.0 10^3/uL (4.4-10.8) L Medications Medications Dose Ordered Sig/Jerald Route Start Time Stop Time Status Last Admin Dose Admin Trimethoprim/ Sulfamethoxazole 1 tab ONCE ONCE PO 05/12/25 22:00 05/12/25 22:01 DC 05/12/25 22:23 Departure 1 Departure Time of Disposition: 04:45 Impression: Primary Impression: Palpitation Disposition: 01 HOME / SELF CARE / HOMELESS Condition: Stable e-Prescriptions Sulfamethoxazole W/Trimethopri (Bactrim Ds Tablet) 1 Tab Tb 1 TAB PO BID for 7 Days, #14 TAB Prov: VEL DUMONT MD 05/12/25 Discharged With: Self Critical Care Note Critical Care Time?: No Stability Stability form required: No Heart Score Heart Score: Heart Score Response (Comments) Value History N/A 0 EKG N/A 0 Age N/A 0 Risk Factors N/A 0 Troponin N/A 0 Total 0 I personally scribed for VEL DUMONT MD ([email or web address]) on 05/12/25 at 18:58. Electronically submitted by Devorah Rodriguez ([email or web address]). VEL DUMONT MD May 12, 2025 18:58
[2025-05-12 19:28] LABS: Alkaline Phosphatase 97 U/L (46-116); Anion Gap 14 (5-15); BUN/Creatinine Ratio 7.5 (10.0-20.0); Calcium 10.3 mg/dL (8.7-10.4); Carbon Dioxide 24 mmol/L (20-31); Chloride 101 mmol/L (98-107); Hematocrit 51.4 % (36.0-46.0); Hemoglobin 17.0 g/dL (12.2-16.2); Mean Corpuscular Hemoglobin 27.8 pg (28.0-32.0); Mean Corpuscular Volume 84.2 fL (80.0-100.0); Nucleated Red Blood Cells % 0.2 %; Potassium 3.6 mmol/L (3.5-5.1); Sodium 139 mmol/L (136-145)
[2025-05-12 19:31] LABS: Alanine Aminotransferase 57 U/L (7-40); Albumin 5.4 g/dL (3.2-4.8); Bilirubin, Total 2.3 mg/dL (0.2-1.0); Blood Urea Nitrogen 8 mg/dL (9-23); Glucose 71 mg/dL (74-106); Total Protein 8.7 g/dL (5.7-8.2)
[2025-05-12 20:49] VITALS: PULSE 86; RESP 16; TEMP 97.3; O2SAT 99
--- NOTE | 2025-05-12 21:08 | DVH ---
Exam: CT CT AB PEL WO CON-NO ORAL OR IV History: left flank pain Comparison Study: CT ABDOMEN PELVIS WITHOUT on DOS: 05/12/25 TECHNIQUE: Multidetector CT of the abdomen AND PELVIS without IV contrast. Axial, coronal and sagitta l multiplanar reformats were obtained from the axial data set by the technologist. Radiation Dose Information: CT Dose: CTDI volume is 7.71 mGy. Dose-length product is 3.92 mGy*cm FINDINGS: Left basilar linear atelectasis. Partially visualized heart is unremarkable. Possible sludge within the gallbladder. Otherwise, liver, spleen, gallbladder, pancreas and adrenal glands unremarkable. Kidneys, ureters and urinary bladder are unremarkable. Uterus and adnexa unremarkable. Intrauterine device is noted in place. Postsurgical changes of the epigastric region. Stomach is unremarkable. Small bowel loops are unrema rkable. Appendix is unremarkable. Large amount of fecal material within the ascending and transverse colons. Small amount of fecal material within the remainder of the colon. No evidence of intraperitoneal free air or free fluid. No evidence of aortic aneurysm or dissection. No significant lymphadenopathy. 1.9 x 4.2 x 2.8 cm lipoma within the right medial /pelvic musculature. Small fat containing supraumbi lical hernia. Sclerotic foci of the left acetabulum which may represent small bone islands. No eviden ce of acute osseous abnormalities. IMPRESSION: No evidence of acute abdominopelvic abnormalities. Large amount of fecal material within the ascending and transverse colons with small amount of fecal material within the remainder of the colon. Possible sludge within the gallbladder. Otherwise, the gallbladder is unremarkable.
[2025-05-12 21:29] LABS: Urine Protein, UAD TRACE (Negative)
[2025-05-12] MEDS ORDERED: BACDST PO (21:51)
[2025-05-12] MEDS: SULFAMETHOX W/TRIMETH(800/160MG) DS TAB PO ONE (22:23)
[2025-05-12 22:25] VITALS: BP 107/85
== END 2025-05-12 22:27 | disposition home or self-care (01) ==
LOC: ER 18:16
DX: R00.2 Palpitations (principal); J45.909 Unspecified asthma, uncomplicated; Z79.899 Other long term (current) drug therapy
CPT/HCPCS: 36415; 74176; 80053; 81001; 81025; 84484; 85025; 93005